=== PATIENT | male | born 1940 ===

== ENCOUNTER 2017-08-15 07:12 | Outpatient (CLI) | payer OTHER ==
[~2017-08-15 07:12] MED LIST: ACCUPRIL10 MG; AMOXICILLIN500 MG PO; ATORVASTATIN CA20 MG; JANUMET 50-1,1 UDTAB; MOTRIN800 MG PO; NABUMETONE500 MG; NEURONTIN600 MG; SYNTHROID50 MCG
== END 2017-08-15 07:28 | disposition home or self-care (01) ==
LOC: NUCLEAR 07:12
DX: I25.5 Ischemic cardiomyopathy (principal)

== ENCOUNTER → 2017-09-15 | Day surgery (SDC) | payer OTHER ==
[~2017-09-15] MED LIST changes: +JANUMET XR 50-1 EAC1 PO
== END | disposition home or self-care (01) ==
LOC: ADM 09-12 08:00 → CIR.AMB 08:00
DX: N21.0 Calculus in bladder (principal)